=== PATIENT | female | born 1930 | race Caucasian/White ===

== ENCOUNTER 2019-08-03 08:55 | Emergency (ER) | payer MEDICARE ==
[2019-08-03 09:32] VITALS: BP 118/87
--- NOTE | 2019-08-03 10:13 | Cat Scan Report ---
CT HEAD WITHOUT CONTRAST HISTORY: MAIN: head injury headache after a fall . TECHNIQUE: Axial imaging performed from the skull apex through the skull base without the use of con trast. All CT scans at this location are performed using CT dose reduction for ALARA by means of aut omated exposure control. COMPARISON: None FINDINGS: Parenchyma: No acute intracranial hemorrhage or parenchymal abnormality.. Mild hypoattenuation thro ughout the white matter is noted and consistent with chronic microvascular ischemic disease. Ventricles: There is mild diffuse brain atrophy with commensurate ventricular enlargement which is l ikely age appropriate. Soft tissues: Soft tissues including the orbits appear normal. Bones: No acute osseous abnormality. Sinuses: Sinuses and mastoid air cells are clear. IMPRESSION: No acute abnormality. Mild diffuse volume loss and chronic white matter changes which khalif ear age appropriate. Signer Name: Floyd Guerrero Jr, MD Signed: 08/03/2019 10:09 AM Workstation Name: [id number]
--- NOTE | 2019-08-03 10:33 | Cat Scan Report ---
CT cervical spine wo con INDICATION / CLINICAL INFORMATION: 89 years Female; MAIN: pain after head injury neck pain after a fall. TECHNIQUE: Axial CT images of the cervical spine were obtained. Sagittal and coronal reformatted images were pr oduced. All CT scans at this location are performed using CT dose reduction for ALARA by means of aut omated exposure control. COMPARISON: None available. FINDINGS: POST-SURGICAL CHANGES: None. ALIGNMENT: There is slight retrolisthesis of C3 with respect to C4, which appears to be on a degenera tive basis. There is mild levoscoliosis of the cervical spine noted. VERTEBRAE: I do not see evidence of a pedicle on the right at C7. These may be on a congenital basis, or perhaps related to remote trauma. This results in an abnormal appearance of the right C6-7 facet joint. Flexion-extension views may be helpful in evaluating for segmental instability. No definitive signs of acute bony trauma are appreciated. There is osseous foraminal narrowing on the right at C3-4, C4-5, and C5-6 related to uncinate and fac et hypertrophy. Similar findings seen on the left at the same levels, as well as C7-T1. Multilevel, mild to moderate, facet hypertrophy noted. INTRAVERTEBRAL DISCS: Multilevel, mild disc space narrowing seen. Most marked findings are at C3-4. M ild disc disease seen at various levels. Most prominent finding may be at C3-4 or C4-5. Canal narrowi ng is seen at C3-4. Follow-up with MRI of the cervical spine, as clinically warranted. PARASPINAL SOFT TISSUES: No significant abnormality. ADDITIONAL FINDINGS: None. IMPRESSION: 1. No definitive signs of acute bony trauma. 2. Unusual appearance at C7, as described above. Follow-up as clinically warranted. 3. Some degree of canal narrowing seen at C3-4. Follow-up with MRI, as clinically warranted. Signer Name: Manny Lam MD, III Signed: 08/03/2019 10:29 AM Workstation Name: [id number]
[2019-08-03] MEDS ORDERED: ACETAMINOPHEN 500 MG TAB PO ONE (11:24)
--- NOTE | 2019-08-03 11:27 | Event Note ---
Face to Face: For this encounter I have reviewed the PA/SENIOR BOOKKEEPER documentation, treatment plan, medical decision making, and I had face to face time with this patient. I evaluated Ms. Kaur. She fell from a bed. She has posterior head pain. She does not have neck pain. She has full range of motion in her neck without pain. She is moving her head and neck [id number] fluidly. She does not have cervical tenderness. Her cervical spine is clinically clear. I do not suspect fracture or ligamentous instability. I reviewed CT cervical spine imaging resul ts per radiology impression. No acute trauma evident.
[2019-08-03 11:31] LABS: Bilirubin,Urine NEG (Negative); Blood,Urine MOD (Negative); Color,Urine Yellow (Yellow); Mucus,Urine 1+ /HPF; Protein,Urine <15 mg/dL mg/dL (Negative); Urobilinogen,Urine < 2.0 mg/dL (<2.0)
--- NOTE | 2019-08-03 11:50 | Emergency Department Report ---
ED Fall HPI - General Chief Complaint: Head Injury Stated Complaint: FALL Time Seen by Provider: 08/03/19 11:13 Source: patient Mode of arrival: Ambulatory - History of Present Illness Initial Comments: This is a 89-year-old female nontoxic, well nourished in appearance, no acute signs of distress presents to the ED with c/o of headache and neck pain s/p mechanical fall from the bed. Patient stated that while she was sleeping she rolled over accidentally and had a fall.. Patient describes headache as diffuse with level of 3 out of 10. Patient denies thunderclap headache. Patient denies any radiation of pain. Patient denies any visual changes. Patient denies worse headache. Patient denies any decreased range of motion of neck. Patient denies any other trauma or injuries. Patient denies any back pain. Patient denies any numbness, tingling, fever, chills, nausea, vomiting, chest pain, shortness of breath, stiff neck. Patient denies facial drooping or one sided weakness. Patient denies any radiation of pain. Patient denies any allergies. MD Complaint: fall -: This morning Place Fall Occurred: home Loss of Consciousness: none Prolonged Down Time?: no Symptoms Prior to Fall: none Location: head, neck Severity: mild Severity scale (0 -10): 3 Quality: aching Associated Symptoms: headache, neck pain. denies: numbness, weakness, chest paint, shortness of breath, abdominal pain, hematuria, unable to walk, lightheaded, vertigo, confusion - Related Data Previous Rx's Medication Instructions Recorded Last Taken Type Naproxen 500 mg PO Q12H PRN #20 tablet 08/03/19 Unknown Rx Allergies Allergy/AdvReac Type Severity Reaction Status Date / Time No Known Allergies Allergy Unverified 10/20/13 08:26 ED Review of Systems ROS: Stated complaint: FALL Other details as noted in HPI Constitutional: denies: chills, fever Eyes: denies: eye pain, eye discharge, vision change ENT: denies: ear pain, throat pain Respiratory: denies: cough, shortness of breath, wheezing Cardiovascular: denies: chest pain, palpitations Endocrine: no symptoms reported Gastrointestinal: denies: abdominal pain, nausea, diarrhea Genitourinary: denies: urgency, dysuria, discharge Musculoskeletal: denies: back pain, joint swelling, arthralgia Skin: denies: rash, lesions Neurological: headache. denies: weakness, paresthesias Psychiatric: denies: anxiety, depression Hematological/Lymphatic: denies: easy bleeding, easy bruising ED Past Medical Hx - Past Medical History Previous Medical History?: No - Surgical History Past Surgical History?: No - Social History Smoking Status: Never Smoker - Medications Home Medications: Home Medications Medication Instructions Recorded Confirmed Last Taken Type Naproxen 500 mg PO Q12H PRN #20 tablet 08/03/19 Unknown Rx ED Physical Exam - General Limitations: No Limitations General appearance: alert, in no apparent distress - Head Head exam: Present: atraumatic, normocephalic - Eye Eye exam: Present: normal appearance - Neck Neck exam: Present: normal inspection, full ROM. Absent: tenderness, mening ismus, lymphadenopathy - Respiratory Respiratory exam: Present: normal lung sounds bilaterally. Absent: respiratory distress, wheezes, rales, rhonchi, stridor, chest wall tenderness, accessory muscle use, decreased breath sounds, prolonged expiratory - Cardiovascular Cardiovascular Exam: Present: regular rate, normal rhythm, normal heart sounds. Absent: bradycardia, tachycardia, irregular rhythm, systolic murmur, diastolic murmur, rubs, gallop - Extremities Exam Extremities exam: Present: normal inspection, full ROM. Absent: tenderness - Back Exam Back exam: Present: normal inspection, full ROM, paraspinal tenderness (Cervical paraspinal). Absent: tenderness, CVA tenderness (R), CVA tenderness (L), muscle spasm, vertebral tenderness, rash noted - Neurological Exam Neurological exam: Present: alert, oriented X3, normal gait - Expanded Neurological Exam Expanded Patient oriented to: Present: person, place, time Cranial nerves: EOM's Intact: Normal, Facial Sensation: Normal Cerebellar function: Finger to Nose: Normal Upper motor neuron: Pronator Drift: Normal, Sensory Extinction: Normal Motor strength exam: RUE: 5, LUE: 5, RLE: 5, LLE: 5 Best Eye Response (Rosanne): (4) open spontaneously Best Motor Response (Rosanne): (6) obeys commands Best Verbal Response (Kennard): (5) oriented Kennard Total: 15 - Psychiatric Psychiatric exam: Present: normal affect, normal mood - Skin Skin exam: Present: warm, dry, intact, normal color. Absent: rash ED Course Vital Signs 08/03/19 09:26 Temperature 97.6 F Pulse Rate 69 Respiratory 18 Rate Blood Pressure 118/87 O2 Sat by Pulse 100 Oximetry - Reevaluation(s) Reevaluation #1: 08/03/19 11:49 Patient is speaking in full sentences with no signs of distress noted. - Consultations Consultation #1: 08/03/19 11:49 Patient has been consulted with Dr. Ramón V about patient history, physical exam, and CT results and patient can be discharged with follow-up. ED Medical Decision Making - Medical Decision Making This is a 89-year-old female that presents with head contusion and cervical spine strain. Patient is stable and was examined by me and Dr. Melgar. CT has been obtained. Vital signs are stable. Patient was notified of the CT results with no questions noted by the patient. I did give a patient strict precautions to return to the emergency room and follow-up with a primary care doctor due to possible abnormal CT of cervical spine which patient stated she will. Upon exam patient does have full range of motion of neck with no midline spinal tenderness. There is no ecchymosis or swelling noted. Patient was also instructed to follow-up with a primary care doctor in 3-5 days or if symptoms worsen and continue return to emergency room as soon as possible. At time of discharge, the patient does not seem toxic or ill in appearance. No acute signs of distress noted. Patient agrees to discharge treatment plan of care. No further questions noted by the patient. Critical care attestation.: If time is entered above; I have spent that time in minutes in the direct care of this critically ill patient, excluding procedure time. ED Disposition Clinical Impression: Cervical strain, acute Qualifiers: Encounter type: initial encounter Qualified Code(s): S16.1XXA - Strain of muscle, fascia and tendon at neck level, initial encounter Fall Qualifiers: Encounter type: initial encounter Qualified Code(s): W19.XXXA - Unspecified fall, initial encounter Head contusion Qualifiers: Encounter type: initial encounter Contusion of head detail: other part of head Qualified Code(s): S00.83XA - Contusion of other part of head, initial encounter Disposition: - TO HOME OR SELFCARE Is pt being admited?: No Does the pt Need Aspirin: No Condition: Stable Instructions: Concussion (ED), Naproxen (By mouth) Additional Instructions: Follow-up with a primary care doctor in 3-5 days or if symptoms worsen and continue return to emergency room as soon as possible. Prescriptions: Naproxen 500 mg PO Q12H PRN #20 tablet PRN Reason: pain Referrals: KANG POSADAS MD [Primary Care Provider] - 3-5 Days WINDY STEINER MD [Staff Physician] - 3-5 Days PRIMARY CARE, [Referring] - 3-5 Days
== END 2019-08-03 12:03 | disposition home or self-care (01) ==
LOC: ED 08:55
DX: S16.1XXA Strain of muscle, fascia and tendon at neck level, initial encounter (principal); S00.93XA Contusion of unspecified part of head, initial encounter; Z79.899 Other long term (current) drug therapy; W06.XXXA Fall from bed, initial encounter; Y93.89 Activity, other specified; Y92.009 Unspecified place in unspecified non-institutional (private) residence as the place of occurrence of the external cause; Y99.8 Other external cause status
CPT/HCPCS: 70450; 72125; 81001